=== PATIENT | female | born 1955 | race Caucasian/White ===

== ENCOUNTER 2019-05-17 10:30 | Outpatient (CLI) | payer OTHER ==
--- NOTE | 2019-05-17 10:55 | ULT ---
Exam: Bilateral renal ultrasound HISTORY: Hypertension. Chronic kidney disease. COMPARISON: None FINDINGS: Right kidney: Normal cortical echotexture. No hydronephrosis. Right kidney measurements: 4.4 x 3.8 x 4.7 cm. Left kidney: Normal cortical echotexture. No hydronephrosis Left kidney measurements 8.5 x 3.9 x 3.8 cm. Urinary bladder: Decompressed. Mucosa cannot be assessed IMPRESSION: No hydronephrosis.
== END 2019-05-17 10:31 | disposition home or self-care (01) ==
LOC: SCSULT 10:30
PROVIDERS: ATTEND Internal Medicine Nephrology
DX: I12.9 Hypertensive chronic kidney disease with stage 1 through stage 4 chronic kidney disease, or unspecified chronic kidney disease (principal); N18.3 Chronic kidney disease, stage 3 (moderate)
CPT/HCPCS: 76770

== ENCOUNTER 2022-04-12 07:21 | Outpatient (CLI) | payer BC, MEDICARE | END 2022-04-12 07:22 | disposition home or self-care (01) | LOC: NM 07:21 | PROVIDERS: ATTEND Internal Medicine Nephrology | DX: E21.3 Hyperparathyroidism, unspecified (principal) | CPT/HCPCS: 78072; A9500 ==